=== PATIENT | female | born 1980 | race Caucasian/White ===

== ENCOUNTER 2019-11-16 21:45 | Emergency (ER) | payer OTHER ==
[~2019-11-16] VITALS: Ht 170.2 cm; Wt 159.7 kg
[~2019-11-16 21:45] MED LIST: ACCUNEB SO1.25 MG/1; ACYCLOVIR 200200 MG PO; B12INJ; CIPROFLOXACIN500 M1 PO; DIFLUCAN150 MG PO; FLAGYL500 MG PO; FLONASE 0.05%50 MCG NASAL; IBUPROFEN 200200 M1; IBUPROFEN 800800 M1 PO; IMITREX 50 MG T50 M1 PO; LIDOCAINE VISC100 ML MM; MACROBID 100 M100 M1 PO; NORCO 5-325 TA1 EACH; NORCO 5-325 TA1 EACH PO; PERCOCET 5-3251 EACH PO; PHENERGAN 25 MG25 M1 PO; PYRIDIUM100 MG PO; TRAMADOL 50 MG50 MG; ULTRAM 50MG TAB50 MG PO; VALTREX1000 MG PO; [UNRECOGNIZED DRUG - OTHER]
[2019-11-16] MEDS ORDERED: ACYCLOVIR 200200 MG PO (21:56)
[2019-11-16 22:07] LABS: URINE BILIRUBIN NEGATIVE (Negative); URINE BLOOD NEGATIVE (Negative); URINE CLARITY CLEAR; URINE COLOR YELLOW; URINE GLUCOSE-RANDOM* NEGATIVE (Negative); URINE KETONES NEGATIVE (Negative); URINE LEUKOCYTES-REFLEX NEGATIVE (Negative); URINE NITRITE-REFLEX NEGATIVE (Negative); URINE PROTEIN (DIPSTICK) NEGATIVE (Negative); URINE SPECIFIC GRAVITY >= 1.030 (1.005-1.035); URINE UROBILINOGEN 0.2 E.U./dl (0.2-1.0)
[2019-11-16] MEDS ORDERED: DIFLUCAN150 MG PO (23:42)
[2019-11-16 23:50] VITALS: BP 115/55
== END 2019-11-16 23:45 | disposition home or self-care (01) ==
LOC: ER 21:45
PROVIDERS: Emergency Medicine
DX: N89.8 Other specified noninflammatory disorders of vagina (principal)